=== PATIENT | female | born 1945 | race Caucasian/White ===

== ENCOUNTER 2023-07-03 12:24 | Emergency (ER) | payer MEDICARE, OTHER, SELFPAY ==
[2023-07-03 12:27] VITALS: BP 145/82; PULSE 71; RESP 14; TEMP 36.5; O2SAT 95; BMI 26.6
--- NOTE | 2023-07-03 12:59 | CRLHL7_ITS ---
For Patients: As a result of the Century Cures Act, medical imaging exams and procedure reports are released immediately into your electronic medical record. You may view this report before your referring provider. If you have questions, please contact your health care provider. INDICATION: Fall. Neck pain. TECHNIQUE: CT of the cervical spine without contrast. Coronal and sagittal reformats are included. COMPARISON: None. FINDINGS: No acute fracture or traumatic malalignment of the cervical spine. Craniocervical junction alignment is maintained. Scattered cervical spondylosis without high grade neural foraminal stenosis. No high grade spinal canal stenosis as far as visualized. Cervical arterial vascular calcifications. Multinodular thyroid gland. The visualized pulmonary apices are clear. IMPRESSION: 1. No acute fracture or traumatic malalignment of the cervical spine. Please note that all CT scans at this facility use dose modulation, iterative reconstruction, and/or weight-based dosing when appropriate to reduce radiation dose to as low as reasonably achievable. Dictated by Wilfredo Bang MD @ 07/03/2023 2:08:40 PM (Electronically Signed)
--- NOTE | 2023-07-03 12:59 | CRLHL7_ITS ---
For Patients: As a result of the Century Cures Act, medical imaging exams and procedure reports are released immediately into your electronic medical record. You may view this report before your referring provider. If you have questions, please contact your health care provider. INDICATION: Fall. Head injury. Neck pain. TECHNIQUE: CT of the head without contrast. Coronal and sagittal reformats are included. COMPARISON: None. FINDINGS: No acute intracranial hemorrhage. No mass effect or midline shift. No hydrocephalus or extra-axial collections. Patchy white matter hypoattenuation, typical for microvascular ischemic changes. No acute osseous abnormalities. Polypoid mucosal thickening right maxillary sinus. Paranasal sinuses are otherwise clear. Normal soft tissues. IMPRESSION: IMPRESSION: 1. No acute intracranial abnormalities. Please note that all CT scans at this facility use dose modulation, iterative reconstruction, and/or weight-based dosing when appropriate to reduce radiation dose to as low as reasonably achievable. Dictated by Wilfredo Bang MD @ 07/03/2023 2:04:14 PM (Electronically Signed)
--- NOTE | 2023-07-03 13:07 | ED_ITS ---
HPI - Head Injury General Date Seen: 07/03/23 Chief complaint: Laceration/Wound Stated complaint: fell, chin laceration Time Seen by Provider: 07/03/23 12:25 Source: patient and family Mode of arrival: ambulatory Limitations: no limitations History of Present Illness HPI Narrative: Patient presents after a fall, she fell on the concrete, lacerating her chin approximately 30 minutes to 1 hour ago. No loss of conscious but she did feel woozy. She primarily did discuss of a trip. She fell on her outstretched hands and denies any pain in her outstretched hand she has a little bit of abrasion to her left palm. She is not on any anticoagulants, feels a little bit woozy, with some mild nausea. Hit the bottom of her chin, causing the laceration, she tells me she has no problems opening her mouth or closing her mouth, no diplopia double vision no numbness tingling weakness in her hands or feet but her neck is sore. This occurred outside. When she was walking. Gentleman did help her, and then her daughter brought her in here to be seen. MD Complaint: head injury Place: outdoors Loss of Consciousness: no Location of injury: face and mandible Radiation: neck Other Injuries: none Associated symptoms: nausea Related Data Home Medications Medication Instructions Recorded Confirmed No Known Home Medications 07/03/23 07/03/23 Allergies Allergy/AdvReac Type Severity Reaction Status Date / Time Unable to Assess Allergy Verified 07/03/23 13:32 Review of Systems Status of ROS: Reports: 10 or more systems reviewed and unremarkable except as noted in History and below Exam Narrative: Exam Narrative: Patient is seen in room 1 she is pleasant alert, she has a Band-Aid over the bottom of her chin, pupils are equal round and reactive, no nystagmus, TMs are normal, her neck shows range of motion from 05/09, little bit of tenderness noted on the terminal area muscle around her neck, her rotation bilaterally is 60?, and her side flexion is 40. Cranial nerves 3-12 are normal, lacerations noted on the bottom of her chin, there is no malocclusion, her mouth opening is normal, in teeth are all intact with no evidence of laceration to her tongue. There is a laceration of approximately 3-4 cm on the bottom part of her chin. That is gaping. [employer]ator strengths are equal bilaterally in her upper extremities, risks of good range of motion, elbows also in shoulders. Her small abrasions are noted on her left palm, but none of them away into the dermal air, nor the bleeding. Chest is clear heart sounds are normal no tenderness noted over thoracic or lumbar spine. Remainder of her examination is entirely normal. Const: Vital Signs, click to edit/add: Vital Signs - 24 hr 07/03/23 12:27 Temperature 97.7 F Pulse Rate [Pulse Oximeter] 71 Respiratory Rate 14 Blood Pressure [Ri ght Upper Arm] 145/82 H Pulse Oximetry 95 Oxygen Delivery Me thod Room Air Documenting provider has reviewed patient's vital signs: yes Course Course Hospital Course: Let was applied to the wound, this on good anesthesia was further bolstered with 1% xylocaine with epinephrine. X4 mL, then was able the clean the wound out found no foreign body, I was able the clinic, it was not below the level the platysma, 4 simple 4-0 sutures were used approximated, family viewed this was happy with the results. Bacitracin dry dressing were applied. Vital Signs Vital signs: Initial Vital Signs Temperature 97.7 F 07/03/23 12:27 Temperature Source Temporal Artery Scan 07/03/23 12:27 Pulse Rate 71 07/03/23 12:27 Pulse Rhythm Regular 07/03/23 12:27 Respiratory Rate 14 07/03/23 12:27 Blood Pressure 145/82 H 07/03/23 12:27 Blood Pressure Mean 103 07/03/23 12:27 Blood Pressure Position Sitting 07/03/23 12:27 Pulse Oximetry 95 07/03/23 12:27 Oxygen Delivery Method Room Air 07/03/23 12:27 Vital Signs Temperature 97.7 F 07/03/23 12:27 Pulse Rate 71 07/03/23 12:27 Respiratory Rate 14 07/03/23 12:27 Blood Pressure 145/82 H 07/03/23 12:27 Pulse Oximetry 95 07/03/23 12:27 Oxygen Delivery Method Room Air 07/03/23 12:27 Temperature 97.7 F 07/03/23 12:27 Pulse Rate 71 07/03/23 12:27 Respiratory Rate 14 07/03/23 12:27 Blood Pressure 145/82 H 07/03/23 12:27 Pulse Oximetry 95 07/03/23 12:27 Oxygen Delivery Method Room Air 07/03/23 12:27 MDM - Head Injury MDM Narrative Medical decision making narrative: Life-threatening differential diagnosis is considered include: Subarachnoid he morrhage, subdural hemorrhage, epidural hemorrhage. Other differential diagnosis considered include concussion, closed head injury, or neck fracture. Medical Records Attestation: I reviewed the patient's medical records. Imaging Data CT scan - head: Attestation: I have reviewed the pertinent imaging results. My impression: Negative Radiologist's impression: atient: BENNETT HOOKLAND Facility:?[facility] Patient ID:?[id number] Site Patient ID:?[id number]. Site :?[id number] Study:?CT Head W/O-07/03/2023 1:16:05 PM Ordering Physician:Bk Rodriguez Final Report: INDICATION: Fall. Head injury. Neck pain. TECHNIQUE: CT of the head without contrast. Coronal and sagittal reformats are included. COMPARISON: None. FINDINGS: No acute intracranial hemorrhage. No mass effect or midline shift. No hydrocephalus or extra-axial collections. Patchy white matter hypoattenuation, typical for microvascular ischemic changes. No acute osseous abnormalities. Polypoid mucosal thickening right maxillary sinus. Paranasal sinuses are otherwise clear. Normal soft tissues. IMPRESSION: IMPRESSION: 1. No acute intracranial abnormalities. Please note that all CT scans at this facility use dose modulation, iterative reconstruction, and/or weight-based dosing when appropriate to reduce radiation dose to as low as reasonably achievable. Dictated by Wilfredo Bang MD @ 07/03/2023 2:04:14 PM (Electronic Signature) Discharge Plan Discharge Clinical Impression: Acute neck pain, Laceration, Head injury Patient Disposition: Home w/ Parent or Adult Condition: Stable Instructions: Care For Your Stitches (DC), Head Injury (ED), Facial Laceration (ED), Acute Neck Pain (ED) Additional Instructions: Bacitracin to the wound daily, sutures should come out in about 7 days you can go on either an by about a day. Would recommend to do this such primary care clinic, signs of head injury such as nausea vomiting weakness unequal pupils or other issue she should come back and be seen, there was at fluid in her sinus I discussed with you, wonder if this is remnants of a sinus infection? Increasing redness swelling fevers chills is sign of infection he should follow up if these occur. Activity Level: Light activity Discharge Diet: Regular Prescriptions: No Action No Known Home Medications Follow Up/Referrals: Sajan King MD [Primary Care Provider] - Stand Alone Forms: [employer] Info Instructions
[2023-07-03] MEDS: LIDOCAINE/EPINEP/TETRACAINE 3 ML GEL..ML. TOPICAL (13:09)
[2023-07-03] MEDS: ACETAMINOPHEN 500 MG TABLET 1000 MG PO (13:09)
== END 2023-07-03 14:24 | disposition home or self-care (01) ==
LOC: ED 14:11
PROVIDERS: Emergency Provider Family Medicine; PCP Surgery
DX: S01.81XA Laceration without foreign body of other part of head, initial encounter (principal); S09.90XA Unspecified injury of head, initial encounter; W01.198A Fall on same level from slipping, tripping and stumbling with subsequent striking against other object, initial encounter; M54.2 Cervicalgia
CPT/HCPCS: 12013; 70450; 72125; 99284; A9270

== ENCOUNTER 2023-11-30 12:45 | Outpatient (RCR) | payer MEDICARE, OTHER, SELFPAY ==
--- NOTE | 2023-11-09 17:09 | PT.OPEX ---
PT [facility] PT [facility] Out[facility] Eval Start: 11/09/23 15:48 Freq: Status: Active Protocol: Document 11/09/23 15:49 [facility] (Rec: 11/09/23 17:06 [facility] [id number]) E-signed By Abraham Morton, PT Physical Therapy Outpatient Evaluation Insurance Information Insurance Name Medicare B Medical Diagnosis Weakness of left lower extremity R29.898 Treating Diagnosis Left knee pain M25.562 Muscle weakness M62.81 Difficulty walking R26.[address] Sharif Sands Subjective Subjective Pt referred to PT due to a fall June 2023 and left leg weakness. Her toe caught on a ridge and she fell onto both knees and hit her chin. Pt continues to have left knee pain that radiates into her medial thigh. Pt lives alone in a [facility]. 1 step to enter w/ rail. 7 steps up and down w/ railing. Pt reports that she stays active going up /down stairs. She takes her small dogs for daily walks. Sometimes left knee suddenly hurts/sharply. She has to stop walking and let pain subside. She owns a SB[employer] cane and FWW. Does not use either currently. Pt not concerned about falling except for when left knee pain comes on suddenly. Aggravating: stairs, getting in/out of vehicle, lifting leg into bed/rolling in bed PMH: B TKA Pain Comments Left knee at worst: 5/10 at best: 0/10 Date of Last Physician Visit 10/29/23 Current Work Status Retired Preferred Name Ana María Precautions Weight Bearing Status Full Weight Bearing Therapy Limitations/Systems Review Not Limited Objective Other/Pertinent Objective Strength: SL heel raises: 10x each but more challenging on the left LE ROM: knee flexion: R WNL L Active 105 deg/Passive 117 deg Knee extension: WNL rose mary Hip: ER: R 50 deg L 35 deg IR: R 25 deg L 5-10 deg and painful hip flexion: R WNL L ~100 deg before pain into thigh Strength: hip flexion: R 4-/5 L 4-/5 (mild thigh ache rose mary) Knee extension: R 4+/5 L 4/5 Knee flexion: 4+/5 L 4+/5 DF: 5/5 rose mary PF: 4/5 rose mary Palpation: - L patellar grind - + TTP left medial thigh/hip adductor - no pain to palpation/tapping over length of left femur/ pelvic bone or lateral hip (no c/o groin pain) - left hip mobs; G1-3, non provocative Special test: left LE hip scour: + for left thigh pain (negative on R) MICHAEL: + for left thigh pain SLR: negative for neural tension or pain up to 90 deg hip flexion Robert test: Left: limited and painful. Tolerated thigh resting at EOB for 15 second. Needed assist lifting left leg into the bed. Functional Test Performed & Score Balance: Standing: DLS: EO 30 sec I EC: 30 sec w minimal sway feet together: EO 30 I EC: 10 sec (at least) with minimal sway SLS: R 1.5 sec L 1 sec - able to keep balance on own afterward 5xSTS: 17.5 sec Assessment Assessment/Impression 78 year old female presents to PT four months s/p trip and fall onto her knees with continued left knee/thigh pain that is aggravated by walking , stairs and lifting leg into bed/vehicle. She demo impaired left knee flexion and impaired/painful left hip IR and flexion. She also demo impaired hip flexor strength w / mild pain in thigh. Left hip scour and MICHAEL are provocative of her thigh/knee pain. SLR negative for pain to at least 90 deg hip flexion. Pt with significant palpation tenderness of left medial thigh soft tissue but non tender over the femur or pelvic bones. I do have some concern regarding her left hip joint given her irritability with hip scour and MICHAEL, however left hip mobs were non- provocative and there is no tenderness w/ tapping over the femur. At this time, given her left hip weakness and palpation tenderness of medial thigh, I am treating her impairments as a soft tissue injury with residual weakness/pain. X-ray of her left knee showed no loosening or damage to her implant or surrounding bone. I will assess her response to the initial HEP next visit and make further recommendations, as needed. Primary Functional Limitations ambulation, stairs, lifting left leg into vehicle/bed Plan of Care Rehabilitation Potential Excellent Physical Therapy Goals In 2-3 weeks, patient will: 1) Be able to take her dog for a short walk without incidence of sudden left knee/ thigh pain 2) Improve left knee flexion ROM to 120 deg to restore baseline mobility In 4-6 weeks, patient will: 3) Lift her left leg into bed/ vehicle I, pain max 110 4) Ambulate up/down stairs reciprocally w/ railing, pain max 2/10 Coordination/Communication With Referral Source Treatment Plan/Direct Interventions Gait Training,Manual Therapy, Neuromuscular Re-ed,Self-Care/ Home Management,Therapeutic Exercises Direct Interventions Clarification Progress left LE ROM and Comments strengthening HEP Frequency/Duration 1x/week for 4-6 weeks Patient Will Be Discharged From Therapy Completion of LTG(s), Independent w/HEP, Independently Progressing Evaluation Billing Untimed Code Treatment Minutes 25 Complexity Moderate Certification Information Initial Certification Date 11/09/23 Ending Certification Date 02/01/24 Provider Signature Shows Agreement With POC & Medical Necessity Physician Signature & Date Requested Please Sign/Date Here Physician Comment/Change : Physician NPI Number #
== END 2023-11-30 15:46 | disposition home or self-care (01) ==
PROVIDERS: PCP Surgery; Visit Provider Orthopaedic Surgery Sports Medicine
DX: R29.898 Other symptoms and signs involving the musculoskeletal system (principal); Z51.89 Encounter for other specified aftercare
CPT/HCPCS: 97110; 97162

== ENCOUNTER 2024-06-01 16:14 | Emergency (ER) | payer MEDICARE, OTHER, SELFPAY ==
[2024-06-01 16:39] VITALS: BP 170/91; PULSE 72; RESP 16; TEMP 36.9; O2SAT 96; BMI 26.6
--- NOTE | 2024-06-01 17:08 | CRLHL7_ITS ---
For Patients: As a result of the Century Cures Act, medical imaging exams and procedure reports are released immediately into your electronic medical record. You may view this report before your referring provider. If you have questions, please contact your health care provider. INDICATION: Leg pain and swelling. TECHNIQUE: Ultrasound venous duplex lower left extremity. Compression venous exam was performed using nazario-scale, color Doppler, and spectral Doppler analysis. COMPARISON: None. FINDINGS: Deep veins: Sonographic imaging demonstrates the left common femoral, deep femoral, superficial femoral, popliteal, posterior tibial and the contralateral right common femoral veins to be fully compressible with normal color Doppler blood flow. Superficial veins: Greater saphenous vein is fully compressible. No popliteal cyst. IMPRESSION: Normal left lower extremity venous ultrasound, no sign of deep venous thrombosis. Dictated by Toby Miller MD @ 06/01/2024 6:33:10 PM (Electronically Signed)
--- NOTE | 2024-06-01 18:15 | ED.GENADULT ---
HPI - General Adult General Date Seen: 06/01/24 Chief complaint: Extremity Pain/Injury, Lower Stated complaint: possible blood clot Time Seen by Provider: 06/01/24 18:14 History of Present Illness HPI narrative: This 78-year-old female with history of bilateral knee replacements, previous varicose pain status post sclerotherapy. She has been having pain in the posterior aspect of her left knee for a few months. She called the clinic triage nurse today and referred to the ER by the triage nurse to rule out a blood clot. History from the patient is that she has had both of her knees replaced here at [facility] over several years ago and had general recover well from her surgery. She had a mechanical trip and fall that occurred in February when she was walking on some irregular sidewalk. She was actually seen in the ER on the day of her injury and had stitches in her chin. Ever since then she has had pain in her left knee. It has been present for the past few months. She had a follow-up with her doctor and had some x-rays and they were negative, she says. For the past couple of months in addition to the knee pain she has had pain in her left medial thigh that runs from essentially near the groin, down the medial thigh all the way down to her knee. Sometimes it feels like her leg is going to give out on her. She has also noted that she has developed a fairly large varicose vein there and she has been attributing that pain to her varicose pain. The pain does not radiate down below the knee. No swelling or pain in her calf. No numbness or weakness in her leg. No associated back pain. She says she has just been living with the pain but today she tried to call her clinic to ask them about the vein and she was told to come here to the ER to rule out a blood clot. Therefore she came in. Her pain is not really worse than normal today. No new changes, redness, pallor, or discoloration. No fever or chills. No right leg pain. Related Data Home Medications ?Medication ?Instructions ?Recorded ?Confirmed lisinopril 20 mg tablet 20 mg PO DAILY 10/29/23 06/01/24 Allergies Allergy/AdvReac Type Severity Reaction Status Date / Time nickel Allergy Mild Rash Verified 06/01/24 16:38 hydrocodone Allergy Unknown Gastrointestinal Verified 06/01/24 16:38 Upset tramadol Allergy Unknown nausea and Verified 06/01/24 16:38 vomiting PFSH PFSH Surgical History (Reviewed 10/29/23 @ 10:58 by Laurie Vega ~ [facility], [facility]) Status post sclerotherapy of varicose veins ?Z98.890 - Other specified postprocedural states (ICD-10) ?Z86.79 - Personal history of other diseases of the circulatory system (ICD-10) History of vein stripping ?Z98.890 - Other specified postprocedural states (ICD-10) History of total right knee replacement (02/06/19) ?Z96.651 - Presence of right artificial knee joint (ICD-10) History of total left knee replacement (03/10/18) ?Z96.652 - Presence of left artificial knee joint (ICD-10) History of hysterectomy ?Z90.710 - Acquired absence of both cervix and uterus (ICD-10) History of cholecystectomy ?Z90.49 - Acquired absence of other specified parts of digestive tract (ICD-10) History of appendectomy ?Z90.49 - Acquired absence of other specified parts of digestive tract (ICD-10) Social History (Updated 10/29/23 @ 10:58 by Laurie Vega ~ [facility], [facility]) Smoking Status: Former smoker What tobacco products do you use: cigarettes Smoking quit date/years: >15 years ago Do you use any of these nicotine containing products: None Second hand tobacco smoke exposure: No How often do you have a drink containing alcohol: never How often do you have six or more drinks on one occasion: Never AUDIT-C Alcohol total score: 0 Non-prescribed substance use: denies use Exam Narrative: Exam Narrative: Constitutional: Appears well-developed and well-nourished. Alert. Conversant. Non toxic. HENT: Head: Atraumatic. Nose: Nose normal. Mouth/Throat: Oral mucosa is clear and moist. no trismus. Pharynx normal. Tonsils symmetric. No tonsillar enlargement, erythema, or exudate. Eyes: Conjunctivae normal. EOM normal. Pupils equal, round, and reactive to light. No scleral icterus. Neck: Normal range of motion. Neck supple. No tracheal deviation present. Cardiovascular: Normal rate, regular rhythm. No gallop. No friction rub. No murmur heard. Symmetric radial artery pulses Pulmonary/Chest: Effort normal. No stridor. No respiratory distress. No wheezes. No rales. No rhonchi . No tenderness. Abdominal: Soft. Bowel sounds normal. No distension. No mass. No tenderness. No rebound. No guarding. Musculoskeletal: RUE: Normal range of motion. No tenderness. No deformity LUE: Normal range of motion. No tenderness. No deformity Pelvis is stable. Lumbar spine nontender. Hips nontender. RLE: Normal range of motion. No edema. No tenderness. No deformity LLE: Normal range of motion in her hip and knee and ankle. She does have swolle varicosities affecting her left medial thigh and medial knee. No surrounding bruising or ecchymosis. No erythema. No hip tenderness. No redness or warmth of the thigh. No crepitus. Normal inspection of the knee. He cleared anteriorly knee replacement incision. No palpable joint infusion. Normal flexion-extension from full extension to be on 90?. No locking. Ligamentous exam somewhat limited but no obvious laxity. No calf or ankle edema. No lower leg, ankle, foot tenderness. No deformity Normal ambulation. No footdrop. Lymph: No cervical adenopathy. Neurological: Alert and oriented to person, place, and time. Normal strength. CN II-VII intact. No sensory deficit. GCS eye subscore is 4. GCS verbal subscore is 5. GCS motor subscore is 6. Normal coordination Sensory: Normal light touch sensation bilaterally on the anteromedial thigh (L3), medial malleolus (L4), dorsal first web space (L5), lateral malleolus (S1). Strength: 5/5 strength hip flexors (L3) on the right and left 5/5 strength in the quadriceps (L4) on the right and left 5/5 strength in the tibialis anterior 5/5 strength in the EHL (L5) on the right and left 5/5 strength in the gastrocnemius (S1) on the right and left 5/5 strength in the hamstring on the right and left Negative straight leg raise bilaterally. Skin: Skin is warm and dry. No rash noted. No pallor. Normal capillary refill. Psychiatric: Normal mood. Normal affect. Const: Vital Signs, click to edit/add: Vital Signs - 24 hr 06/01/24 16:39 Temperature 98.4 F Pulse Rate [Pulse Oximeter] 72 Respiratory Rate 16 Blood Pressure [Ri ght Upper Arm] 170/91 H Pulse Oximetry 96 Oxygen Delivery Me thod Room Air Course Vital Signs Vital signs: Initial Vital Signs Temperature 98.4 F 06/01/24 16:39 Temperature Source Temporal Artery Scan 06/01/24 16:39 Pulse Rate 72 06/01/24 16:39 Respiratory Rate 16 06/01/24 16:39 Blood Pressure 170/91 H 06/01/24 16:39 Blood Pressure Mean 117 H 06/01/24 16:39 Blood Pressure Position Sitting 06/01/24 16:39 Pulse Oximetry 96 06/01/24 16:39 Oxygen Delivery Method Room Air 06/01/24 16:39 Vital Signs Temperature 98.4 F 06/01/24 16:39 Pulse Rate 72 06/01/24 16:39 Respiratory Rate 16 06/01/24 16:39 Blood Pressure 170/91 H 06/01/24 16:39 Pulse Oximetry 96 06/01/24 16:39 Oxygen Delivery Method Room Air 06/01/24 16:39 Temperature 98.4 F 06/01/24 16:39 Pulse Rate 72 06/01/24 16:39 Respiratory Rate 16 06/01/24 16:39 Blood Pressure 170/91 H 06/01/24 16:39 Pulse Oximetry 96 06/01/24 16:39 Oxygen Delivery Method Room Air 06/01/24 16:39 Medical Decision Making MDM Narrative Medical decision making narrative: 78-year-old female presenting to the ER today with her son for evaluation of pain that she reported was actually in the back of her left knee at triage. However the pain is actually more in the front of her left knee and on her left medial thigh. It has been there for a couple of months. She was referred to the ER today by her primary care clinic to rule out DVT. Venous ultrasound of her leg is obtained and is fortunately negative for DVT. She does have evidence for a varicose vein there but no evidence for any cellulitis, abscess, superficial thrombophlebitis. She has pain when she tries to move her thigh and tenderness over medial thigh. I wonder if this may be muscular or tendinous/soft tissue in that area. No recent falls or other evidence for hip fracture. With thigh and knee pain ongoing for a couple of months, unlikely to be pelvic fracture. She has already had x-rays of her knee so will hold off on radiography for today. No evidence for any acute limb ischemia or arterial disease. No evidence for infection. No swelling around the knee joint to suggest gout, septic arthritis. The patient says that she might just be developing ?old age? and says that she thinks she may does have to live with this. I tried to encourage her to follow up with her orthopedic doctor or her primary care provider for recheck. We discussed precautions for return to the ER. Imaging Data US venous LLE: Attestation: I have reviewed the pertinent imaging results. Radiologist's impression: FINDINGS: Deep veins: Sonographic imaging demonstrates the left common femoral, deep femoral, superficial femoral, popliteal, posterior tibial and the contralateral right common femoral veins to be fully compressible with normal color Doppler blood flow. Superficial veins: Greater saphenous vein is fully compressible. No popliteal cyst. IMPRESSION: Normal left lower extremity venous ultrasound, no sign of deep venous thrombosis. Discharge Plan Discharge Clinical Impression: Acute pain of left thigh Patient Disposition: Home, Self-Care Condition: Stable Instructions: Leg Pain (ED) Additional Instructions: As we discussed, your ultrasound looks good today. There is no sign of any blood clots in the veins. We do not know what is making your thigh and knee hurt. I wonder if this could be a muscular injury or tendon injury from your fall. Please follow-up with Dr. Hunter or your regular primary doctor next week for recheck. Come back to the ER right away if you have any concerns especially worsening pain, new swelling, discoloration of your leg or knee, fever, or any other problems. Prescriptions: No Action lisinopril 20 mg tablet 20 mg PO DAILY Follow Up/Referrals: Sajan King MD [Primary Care Provider] - Stand Alone Forms: [employer] Info Instructions
--- OUTSIDE RECORDS SUMMARY | 2024-06-01 19:08 | XMS_ITS | Clinical Summary ---
Author Organization [facility] Address [place], [place] [address] Care Team Providers Care Process Controller Name Role Phone Sajan King MD Primary Care Provider [phone] Allergies Active Allergy Reactions Criticality Noted Date Comments Hydrochlorothiazide Diarrhea 01/03/2021 Hydrocodone-Acetaminophen GI Upset 01/21/2016 Tramadol Nausea And Vomiting 06/29/2017 Medications Medication Sig Dispensed Refills Start Date End Date Status psyllium (Fiber, psyllium husk,) 0.4 gram capsuleIndications :Chronic diarrhea Take 1 Capsule by mouth once daily. 90 Capsule 3 07/06/2023 Active polyethylene glycol-electrolyte (GOLYTELY) 236-22.74-6.74 -5.86 gram suspensionIndicati ons:Encounter for screening colonoscopy Drink 2 liters (half the bottle) the day before colonoscopy and 2 liters (remaining prep) 6 hours prior to colonoscopy appointment. 4000 mL 07/06/2023 Active diclofenac topical (VOLTAREN) 1 % gelIndications:Chr onic pain of left knee Apply 4 g topically to affected area(s) four times daily. 100 g 10/07/2023 Active acetaminophen (TYLENOL EXTRA STRGTH) 500 mg tabletIndications: Chronic pain of left knee Take 2 Tablets (1,000 mg) by mouth every 8 hours if needed for Pain. Max acetaminophen dose: 4000mg in 24 hrs. 100 Tablet 1 10/07/2023 Active triamcinolone (ARISTOCORT; KENALOG) 0.1 % creamIndications:P soriasiform dermatitis Apply topically to affected area(s) 2 times daily if needed. 30 g 12/10/2023 Active lisinopriL (PRINIVIL; ZESTRIL) 20 mg tabletIndications: Hypertension, unspecified type Take 1 Tablet (20 mg) by mouth once daily. 90 Tablet 3 03/20/2024 Active loperamide (IMODIUM) 2 mg capsule 2 mg once daily 03/20/2024 Active Active Problems Problem Noted Date Diagnosed Date MCI (mild cognitive impairment) with memory loss 05/10/2018 Hypertension 09/24/2015 H. pylori infection 07/12/2014 Overview: EGD 06/2014 ulcer, H. Pylori Adenomatous colon polyp 06/18/2014 Overview: Colonoscopy 05/2014 polyp repeat in 5 years Colonoscopy 07/2023 TA, repeat in 7 years Symptomatic varicose veins 12/24/2011 Encounters Date Type Department Care Team Description 06/01/2024 Nurse Triage [facility] [address] [place] [address] Sajan King MD Leg Pain/problem (Varicose vein ) 03/20/2024 1:50 PM CDT Preop Visit [facility] [address] [place] [address] Sajan King MD Preoperative Exam (Cataract surgery left eye on 03/30/24 right eye on 04/13/24 [facility]) 03/20/2024 Travel from Last 3 Months Immunizations Name Administration Dates Next Due COVID-19 vaccine (Pfizer-Bio NTech 30mcg/0.3mL) REBEKA SENA 11/26/2021,03/27/2021,03/07/2021 Pneumococcal Poly,23-Valent (Pneumovax) 01/02/20 10 Td, Preservative Free (age >= 7 Years) 0 Tdap 04/14/2016 Zoster (Zostavax-ZVL, live) 05/18/2014 Family History Medical History Relation Name Comments Heart Disease Brother 1 Heart Disease Brother 2 Heart Disease Brother 3 Heart Disease Father Cancer-colon No Family History Relation Name Status Comments Brother 1 Brother 2 Brother 3 Father Social History Tobacco Use Types Packs/Day Years Used Date Smoking Tobacco: Former Cigarettes 1 21 Smokeless Tobacco: Never Tobacco Cessation:Counseling Given: No Alcohol Use Standard Drinks/Week Comments Yes 0 (1 standard drink = 0.6 oz pur e alcohol) 1-2 drinks per day PHQ-2 Answer Date Recorded PHQ-2 TOTAL SCORE 0 07/06/2023 Social Connections Answer Date Recorded Frequency of Communication with Friends and Fami ly 0 10/07/2023 Financial Resource Strain Answer Date R ecorded Difficulty of Paying Living Expenses 3 10/07/2023 Difficulty of Paying Living Expenses Not on file 10/07/2023 Food Insecurity Answer Date Recorded Worried About Running Out of Food in the Last Ye ar 1 10/07/2023 Transportation Needs Answer Date Record ed Lack of Transportation (Medical) 1 10/07/2023 Housing Stability Answer Date Recorded Unable to Pay for Housing in the Last Year 1 10/07/2023 Sex and Gender Information Value Date Recorded Sex Assigned at Not on file Gender Identity Not on file Sexual Orientation Not on file Obstetrics History Para Term AB IAB SAB Ectopic Multiple Livin g Live Births 5 5 5 5 Date Outcome GA Total Labor Labor/2nd/3rd Weight Sex Type Anes PTL Daniela A1 A5 Name Clin Term Term Term Term Term Last Filed Vital Signs Vital Sign Reading Time Taken Comments Blood Pressure 137/74 03/20/2024 1:59 PM CDT Pulse 64 03/20/2024 1:59 PM CDT Temperature 36.7 ??C (98.1 ??F) 09/08/2021 11:24 AM C DT Respiratory Rate 12 08/11/2023 11:10 AM CDT Oxygen Saturation 97% 03/20/2024 1:56 PM CDT Inhaled Oxygen Concentration - - Weight 67.8 kg (149 lb 8 oz) 03/20/2024 1:56 PM CDT Height 163.1 cm (5' 4.21) 07/06/2023 11:22 AM C DT Body Mass Index 25.49 07/06/2023 11:22 AM CDT Plan of Treatment Upcoming Encounters Date Type Department Care Team (Late st Contact Info) Description 06/16/2024 1:10 PM CDT Office Visit [facility] [address] [place] [address] Sajan King MD [address] [place] [address] Health Maintenance Due Date Last Done Comments Pneumococcal series for age 65+ (2 of 2 - PCV) 01/02/2011 01/02/2010 Zoster (shingles) series for age 50+ (2 of 3) 07/13/2014 05/18/2014 COVID-19 vaccine series (4 - season) 2023 11/26/2021, 03/27/2021, 03/07/2021 BMI (ht and wt on same day) for age 18+ 07/06/2024 07/06/2023, 04/06/2022, 03/20/2022, Additional history exists Medicare Wellness for age 65+ 07/06/2024, 03/20/2022, 12/23/2020, Additional history exists Depression screening for age 12+ 07/09/2024 07/09/2023, 07/06/2023, 07/06/2023, Additional history exists Influenza for age 65+ 07/23/2024 Tetanus booster 04/14/2026 04/14/2016, 01/02/2010 Tdap Completed 04/14/2016, 01/02/2010 Hepatitis C screening for ag e 18-79 Completed 11/17/2016 DEXA/DXA scan for age 65+ Completed 12/23/2020, Procedures Procedure Name Priority Date/Time Associated Diagnosis Comments XR DXA BONE DENSITY 2 SITES AXIAL Routine 12/23/2020 3:14 PM TEXTILE KNITTER Asymptomatic menopausal state Osteopenia, unspecified location ANTI HCV Routine 11/17/2016 11:46 AM TEXTILE KNITTER Need for hepatitis C screening test from Last 3 Months or Most Recently Relevant to Health Maintenance Results * XR DXA BONE DENSITY 2 SITES AXIAL (12/23/2020 3:14 PM TEXTILE KNITTER) Anatomical Region Laterality Modality Spine, HIPS, HIPL, HIPR Other Narrative 12/30/2020 9:37 AM TEXTILE KNITTER PATIENT NAME: Kathleen Elizabeth DATE OF : 1945 EXAM DATE: 12-23-20 INDICATION: FOLLOW UP OF EXISTING OSTEOPENIA TECHNIQUE: ??Dual-energy x-ray absorptiometry performed with routine technique. COMPARISON: 2015 RISK FACTORS: NO RISK FACTORS FINDINGS- see scanned imaging for BMD values: Lumbar Spine: [L1-L4]: ?? T-score: [ -3.1]. Z-score: [-1.6 ] RIGHT Hip Total: ? T-score: [-1.4 ]. Z-score: [0.2 ] RIGHT Hip Femoral neck: ?T-score: [-2.1 ]. Z-score: [-0.3 ] LEFT Hip Total: ?T-score: [-1.8 ]. Z-score: [ -0.3] LEFT Hip Femoral neck: ?T-score: [-2.3 ]. Z-score: [-0.5] COMPARISON: There has been a -0.096 % decrease in lumbar spine BMD. There has been a -0.068% decrease in hip BMD. FRAX Results: 10-year probability of major osteoporotic fracture is 15.5%, and of hip fracture is 4.6%. IMPRESSION/RECOMMENDATIONS: [1. Using T score] OSTEOPOROSIS. - Pharmacologic treatment recommended - There has been a statistically significant worsening of BMD since last DXA at the 2015 - ??Based on current guidelines, consider treatment if major osteoporotic fracture score is greater than or equal to 20%. Consider treatment if hip fracture score is greater than or equal to 3%. The patient does meet this criteria. - ??General bone health recommendations include exercise 3x/week, vitamin d 800-2000iu daily, calcium 1200-1500mg daily, and no smoking should be optimized. - T score meets the World Health Organization (WHO) criteria for osteoporosis at one or more measured sites. The risk of osteoporotic fracture increased approximately two-fold for each SD decrease in T-score. REPEAT BONE DENSITY SCAN IN 2 YEARS. Serial BMD testing can be used in this patient to determine whether treatment should begin (a significant loss may indicate the need for treatment) or to monitor response to therapy. Elvia Quispe PA-C [facility] 12/30/2020 Sajan King MD DEXA * ANTI HCV (11/17/2016 11:46 AM TEXTILE KNITTER) HEPATITIS C ANTIBODY Non-Reacti ve Non-Reacti ve 11/17/2016 5:49 PM TEXTILE KNITTER [facility] Blood BLOOD SPECIMEN / Unknown Venipuncture / Unknown 11/17/2016 11:46 AM TEXTILE KNITTER 11/17/2016 11:46 AM TEXTILE KNITTER Narrative [facility] - 11/17/2016 5:49 PM TEXTILE KNITTER Antibodies to HCV not detected; does not exclude the possibility of exposure to HCV. Sajan King MD SEND OUTS [facility] [address] [place] [address], from Last 3 Months or Most Recently Relevant to Health Maintenance Care Teams Process Controller Relationship Specialty Start Date End Date Sajan King MD [address] [place] [address] PCP - General Family Practice 07/11/14
== END 2024-06-01 19:09 | disposition home or self-care (01) ==
LOC: ED 19:06
PROVIDERS: Emergency Provider Emergency Medicine; PCP Surgery
DX: M79.652 Pain in left thigh (principal)
CPT/HCPCS: 93971; 99283